=== PATIENT | male | born 1960 | race Caucasian/White ===

== ENCOUNTER → 2020-12-24 | Outpatient (CLI) | payer OTHER | LOC: CARD 13:58 | DX: I51.7 Cardiomegaly (principal) | CPT/HCPCS: 93306 ==

== ENCOUNTER 2023-06-07 11:07 | Outpatient (RCR) | payer OTHER | END 2023-06-08 | disposition home or self-care (01) | PROVIDERS: ATTEND Psychiatry & Neurology Neurology | DX: M54.16 Radiculopathy, lumbar region (principal); G35 Multiple sclerosis ==